=== PATIENT | male | born 1955 | race Caucasian/White ===

== ENCOUNTER 2016-10-18 10:20 | Emergency (ER) | payer OTHER ==
[~2016-10-18] VITALS: Ht 165.1 cm; Wt 102.5 kg
[2016-10-18] MEDS ORDERED: METF500T4 PO (10:29)
[2016-10-18] MEDS ORDERED: ATOR20TA86 PO (10:29)
[2016-10-18 10:31] LABS: GLUCOSE,POINT OF CARE 115 MG/DL (70-110)
[2016-10-18] MEDS ORDERED: BECL8.7A6 IH (10:40)
[2016-10-18] MEDS ORDERED: ALBU8HFA IH (10:40)
[2016-10-18] MEDS ORDERED: IBUPROFEN 600 MG TABLET PO ONE (11:30)
[2016-10-18 13:19] VITALS: BP 123/84
== END 2016-10-18 13:37 | disposition home or self-care (01) ==
LOC: EMS 10:22
DX: S63.501A Unspecified sprain of right wrist, initial encounter (principal); S80.01XA Contusion of right knee, initial encounter; E11.9 Type 2 diabetes mellitus without complications; E78.00 Pure hypercholesterolemia, unspecified; J45.909 Unspecified asthma, uncomplicated; F17.210 Nicotine dependence, cigarettes, uncomplicated; W22.8XXA Striking against or struck by other objects, initial encounter; Y93.89 Activity, other specified; Y92.89 Other specified places as the place of occurrence of the external cause; Y99.8 Other external cause status
CPT/HCPCS: 82962; 99284